=== PATIENT | male | born 1970 | race Hispanic/Latino ===

== ENCOUNTER 2017-02-08 07:10 | Outpatient (CLI) | payer BC ==
--- NOTE | 2017-02-08 08:28 | Cat Scan Report ---
LIMITED CHEST CT SCAN FOR CALCIUM SCORING: History: Hypertensive heart disease. A limited chest CT scan was carried out for calcium evaluation of the coronary arteries. This dictation is for the non-cardiac portion of the chest which was included. There is no hilar or mediastinal mass seen. The visualized lungs are expanded and clear. No abnormality is seen in the included portion of the upper abdomen. IMPRESSION: No significant abnormalities.
[2017-02-08] MEDS ORDERED: LEXISCAN IV ONE (09:21)
== END 2017-02-08 07:11 | disposition home or self-care (01) ==
LOC: ECHO 07:10
PROVIDERS: ATTEND Internal Medicine
DX: I11.9 Hypertensive heart disease without heart failure (principal)
CPT/HCPCS: 75571; 78452; 93017; 93306; A9502; J2785